=== PATIENT | female | born 1995 | race Caucasian/White ===

== ENCOUNTER 2016-11-05 20:22 | Emergency (ER) | payer MEDICAID ==
[~2016-11-05] VITALS: Ht 162.6 cm; Wt 90.7 kg
[2016-11-05] MEDS ORDERED: ULTRAM PO STA (20:52)
--- NOTE | 2016-11-05 21:00 | ER.PDOC ---
General Chief Complaint: Skin Rash/Abscess Stated Complaint: SHINGLES Time seen by MD: 20:56 Source: patient Exam Limitations: no limitations History of Present Illness Initial Comments Skin rash both armpit for 1 week. Seen in [place] and culture of fluid from vesicle showed shingles. Comes in because of pain and wants pain control. Timing/Duration: 1 week Location: (R) axillary, (L) axillary Quality: painful Allergies: Coded Allergies: aripiprazole (Verified Allergy, Unknown, 11/05/16) codeine (Verified Allergy, Unknown, 11/05/16) ketorolac (Verified Allergy, Unknown, 11/05/16) sertraline (Verified Allergy, Unknown, 11/05/16) Past Medical History Surgical History: cholecystectomy, LMP (females 10-50): this week Social History Smoking: non-smoker Alcohol Use: none Drug Use: none Constitutional: no symptoms reported Respiratory: no symptoms reported Cardiovascular: no symptoms reported Gastrointestinal: no symptoms reported Genitourinary: no symptoms reported Skin: see HPI All Other Systems: Reviewed and Negative Physical Exam General Appearance: alert, no distress Skin: skin rash Location: other (bilateral axilla) Character: symmetric, maculopapular, vesicular With: tenderness EENT: eyes nml inspection, lips/gums nml, pharynx nml Neck: trachea midline, no swelling Respiratory: no resp. distress, breath sounds nml CVS: reg. rate & rhythm, heart sounds nml Abdomen: non-tender, no organomegaly NEURO/PSYCH: oriented x 3, CN's nml as tested, motor nml, sensation nml, mood/ affect nml Departure Time of Disposition: 20:59 Disposition: 01 HOME, SELF-CARE Impression: Primary Impression: Herpes zoster without complication Condition: Stable Referrals: UNDEFINED,PHYSICIAN (PCP) PRIMARY CARE PROVIDER Additional Instructions: Tramadol F/U with your PCP in 2-3 days ISA RUIZ MD Nov 05, 2016 21:00
[2016-11-05] MEDS ORDERED: ULTRAM ONE (21:20)
[2016-11-05 21:21] VITALS: BP 108/67
== END 2016-11-05 21:26 | disposition home or self-care (01) ==
LOC: ER 20:22
DX: B02.9 Zoster without complications (principal); Z88.8 Allergy status to other drugs, medicaments and biological substances; Z88.5 Allergy status to narcotic agent; Z88.6 Allergy status to analgesic agent
CPT/HCPCS: 99283

== ENCOUNTER 2025-07-03 23:37 | Emergency (ER) | payer OTHER, MEDICAID ==
[~2025-07-03] VITALS: Ht 160 cm; Wt 94.6 kg
[2025-07-03 23:40] VITALS: BP 149/93; PULSE 92; RESP 18; TEMP 98.2; O2SAT 99
[2025-07-04 00:40] VITALS: BP 135/80; PULSE 88; RESP 18; TEMP 98.2; O2SAT 99
[2025-07-04] MEDS ORDERED: ULTRAM ONE (01:21)
[2025-07-04] MEDS: ULTRAM PO STA (01:28)
[2025-07-04] MEDS ORDERED: ULTRAM PO PRN (01:30)
[2025-07-04] MEDS ORDERED: CYCL10TA19 PO (01:50)
[2025-07-04] MEDS ORDERED: PRED20TA PO (01:50)
[2025-07-04] MEDS ORDERED: DICL50TA2 PO (01:50)
[2025-07-04 01:51] VITALS: BP 131/77; PULSE 80; RESP 18; O2SAT 99
== END 2025-07-04 01:58 | disposition home or self-care (01) ==
LOC: ER 23:37
DX: S83.92XA Sprain of unspecified site of left knee, initial encounter (principal); S70.11XA Contusion of right thigh, initial encounter; Z88.5 Allergy status to narcotic agent; Z90.49 Acquired absence of other specified parts of digestive tract; V49.60XA Unspecified car occupant injured in collision with unspecified motor vehicles in traffic accident, initial encounter; Y93.89 Activity, other specified; Y92.89 Other specified places as the place of occurrence of the external cause; Y99.8 Other external cause status
CPT/HCPCS: 99284; 93971; 73560; J8499